=== PATIENT | female | born 1965 | race Two or more races ===

== ENCOUNTER 2024-08-10 10:37 | Emergency (ER) | payer OTHER ==
[~2024-08-10] VITALS: Ht 160 cm; Wt 70.0 kg
[2024-08-10 10:43] VITALS: TEMP 97.9
[2024-08-10] MEDS ORDERED: LOSA-381 PO (10:45)
[2024-08-10] MEDS: KETOROLAC TROMETHAMINE 60 MG/2 ML VIAL IM ONE (14:55)
[2024-08-10 15:29] VITALS: BP 128/72; PULSE 72; RESP 18; O2SAT 98
== END 2024-08-10 17:01 | disposition home or self-care (01) ==
LOC: EMS 10:37 → EDBD 10:37 → EMS 17:01
DX: S83.92XA Sprain of unspecified site of left knee, initial encounter (principal); I10 Essential (primary) hypertension; Z98.890 Other specified postprocedural states; X50.1XXA Overexertion from prolonged static or awkward postures, initial encounter; Y93.89 Activity, other specified; Y92.89 Other specified places as the place of occurrence of the external cause; Y99.8 Other external cause status
CPT/HCPCS: 99283; 73562; 96372; J1885